=== PATIENT | female | born 1990 | race Caucasian/White ===

== ENCOUNTER 2018-05-02 13:40 | Emergency (ER) | payer OTHER ==
[~2018-05-02] VITALS: Ht 157.5 cm; Wt 97.6 kg
[2018-05-02 14:40] VITALS: BP 137/79
--- NOTE | 2018-05-02 14:50 | NUR ---
UNABLE TO PROVIDE URINE AT THIS TIME, PT AMBULATES BACK TO THE THE [facility] URINE URINE CUP PROVIDED
--- NOTE | 2018-05-02 17:14 | NUR ---
CALLED PT IN THE LOBBY, NO RESPONSE.
--- NOTE | 2018-05-02 18:56 | NUR ---
PATIENT CALLED FROM LOBBY NO ANSWER PATIENT IS LWBS. NO FURTHER CARE GIVEN.
== END 2018-05-02 17:14 | disposition home or self-care (01) ==
LOC: MED 13:40
DX: N93.9 Abnormal uterine and vaginal bleeding, unspecified (principal); Z53.21 Procedure and treatment not carried out due to patient leaving prior to being seen by health care provider

== ENCOUNTER 2019-08-11 23:45 | Emergency (ER) | payer SELFPAY ==
[~2019-08-11] VITALS: Ht 160 cm; Wt 95.3 kg
[2019-08-12 00:10] VITALS: BP 117/67
--- NOTE | 2019-08-12 00:20 | NUR ---
28 YEAR OLD FEMALE COMPLAINS OF LOWER ABDOMINAL AND LEFT FLANK PAIN X 2 WEEKS. PT ALSO COMPLAINS OF BLOOD IN URINE. PT STATES SHE IS 3.5 WEEKS . PATIENT DENIES N/V/D/. PT AOX4, BREATHING EVEN AND UNLABORED, SKIN WARM AND DRY. BED IN LOWEST POSITION, LOCKED, BED RAIL UPX1. PT PLACED ON MONITOR, ERMD MADE AWARE PMH - 2 CSECTION ALLERGIES - NKA
[2019-08-12] MEDS ORDERED: ACETAMINOPHEN EXTRA STRENGTH 500 MG TAB PO ONE (00:35)
[2019-08-12 00:48] LABS: BASOPHILS # (AUTO) 0.1 K/uL (0.00-0.22); BASOPHILS % (AUTO) 0.7 % (0.0-2.0); EOSINOPHILS # (AUTO) 0.1 K/uL (0-0.4); EOSINOPHILS % (AUTO) 0.7 % (0.0-4.0); HEMATOCRIT 38.2 % (36-48); HEMOGLOBIN 12.6 g/dL (12.0-16.0); LYMPHOCYTES # (AUTO) 2.8 K/uL (2.5-16.5); LYMPHOCYTES % (AUTO) 22.4 % (20.5-51.1); MEAN CORPUSCULAR HEMOGLOBIN 29 pg (27-31); MEAN CORPUSCULAR HGB CONC 33 g/dL (33-37); MEAN CORPUSCULAR VOLUME 88.7 fL (80-94); MONOCYTES # (AUTO) 0.8 K/uL (0.8-1.0); MONOCYTES % (AUTO) 6.6 % (1.7-9.3); NEUTROPHILS # (AUTO) 8.8 K/uL (1.8-7.7); NEUTROPHILS % (AUTO) 69.6 % (42.2-75.2); PLATELET COUNT (AUTO) 268 K/uL (140-450); RED CELL DISTRIBUTION WIDTH 14.6 % (11.6-13.7); WHITE BLOOD COUNT (AUTO) 12.7 K/uL (4.8-10.8)
[2019-08-12 00:56] LABS: APPEARANCE,URINE SL CLOUDY (CLEAR); BILIRUBIN,URINE NEGATIVE (NEGATIVE); BLOOD, URINE NEGATIVE (NEGATIVE); COLOR,URINE YELLOW (YELLOW); LEUKOCYTE ESTERASE ,URINE NEGATIVE (NEGATIVE); NITRITE, URINE NEGATIVE (NEGATIVE); UGLUCOSE NEGATIVE (NEGATIVE)
[2019-08-12 00:57] LABS: ANION GAP 14.1 (8-16); CARBON DIOXIDE 22.5 mmol/L (21-32); CREATININE 0.6 mg/dL (0.6-1.3); POTASSIUM 3.6 mmol/L (3.5-5.1)
--- NOTE | 2019-08-12 02:13 | NUR ---
PATIENT ALERT AND AWAKE, BREATHING EVEN AND UNLABORED
[2019-08-12 03:35] VITALS: BP 105/75
--- NOTE | 2019-08-12 03:35 | NUR ---
Patient discharged with v/s stable. Written and verbal after care instructions about flank pain and subchorionic hematoma given and explained. Patient verbalized understanding. Ambulatory with steady gait. All questions addressed prior to discharge. Advised to follow up with PMD.
== END 2019-08-12 03:35 | disposition home or self-care (01) ==
LOC: MED 23:45
DX: O46.8X1 Other antepartum hemorrhage, first trimester (principal); O00.01 Abdominal pregnancy with intrauterine pregnancy
CPT/HCPCS: 36415; 76817; 80048; 81003; 81025; 84702; 85025; 86900; 86901; 99284; Q0092